=== PATIENT | male | born 1995 | race Caucasian/White ===

== ENCOUNTER → 2017-04-27 | Outpatient (CLI) | payer BC ==
[~2017-04-27] MED LIST: GADAVIST IV PRN
--- NOTE | 2017-04-27 15:16 | DIAGNOSTIC IMAGING REPORT ---
CERVICAL SPINE COMBO HISTORY: 22 years-old Male R20.0 [id number] Neck [id number] acute neck pain with radiation into the upper extremities. Associated numbness and tingling. COMPARISON: None available TECHNIQUE: Multiplanar multisequence MRI of the cervical spine was obtained both with and without the use of 6 mL Gadavist FINDINGS: The large [id number] service crew supervisor localizer images demonstrate no gross abnormality of the lung apices or soft tissues. The imaged posterior fossa structures are unremarkable. Signal within the cord is within normal limits. Areas of increased cervical spinal cord signal on the STIR images are likely artifactual with the T2 and T1 images appearing normal. There is no abnormal enhancement identified. The precontrast axial T1 images are moderately motion degraded. No acute fracture, subluxation, bone marrow or soft tissue edema. C2-C3: Normal disc space without significant central canal or foraminal narrowing. C3-C4: Minimal posterior disc space narrowing with uncovertebral spurring and mild disc desiccation. No large disc bulge, central canal or foraminal narrowing. C4-C5: Normal disc space without significant central canal or foraminal narrowing. C5-C6: Normal disc space without significant central canal or foraminal narrowing. C6-C7: Normal disc space without significant central canal or foraminal narrowing. C7-T1: Minimal intervertebral disc space narrowing without significant disc bulge, central canal or foraminal narrowing. IMPRESSION: 1. Very minimal discogenic degenerative changes at C3-C4 and C7-T1 without central canal or foraminal narrowing. 2. No abnormal enhancement. The above report was generated using voice recognition software. It may contain grammatical, syntax or spelling errors. Electronically signed by: Carlos Oviedo M.D. 04/27/2017 3:15 PM Dictated Date/Time: 04/27/2017 2:36 PM
== END | disposition home or self-care (01) ==
LOC: C.MRIBC 13:43
PROVIDERS: ATTEND Physician Assistant
DX: M54.2 Cervicalgia (principal); R20.0 Anesthesia of skin